=== PATIENT | male | born 1985 | race Caucasian/White ===

== ENCOUNTER 2025-10-10 11:31 | Emergency (ER) | payer OTHER, SELFPAY ==
[2025-10-10 11:32] VITALS: BP 143/94; PULSE 86; RESP 18; TEMP 36.6; O2SAT 96
--- NOTE | 2025-10-10 11:43 | EDS_ITS ---
HPI History of Present Illness Chief Complaint: Lower Extremity Injury Detail of Chief Complaint: Right ankle injury Informant: patient Narrative Narrative: Patient presents to the emergency department with injury to the right ankle. Patient states that he slip and fall last night on ice. Able to bear some weight but having pain. Denies any other injuries. He is not anticoagulated. Did not hit his head. No loss of consciousness. PFSH PFSH Medical History no medical history Home Medications ?Medication ?Instructions ?Recorded ?Last Taken ?Type NK 10/10/25 Unknown History Allergy/AdvReac Type Severity Reaction Status Date / Time No Known Allergies Allergy Verified 10/10/25 11:34 Family History no significant family his Surgical History no surgical history ROS ROS ED Review of Systems ROS Unobtainable: other Constitutional Constitutional ED: Reports lethargy; Denies chills, fever(s), sweats or weight loss Eyes Eyes: Denies blurry vision, change in vision or diplopia ENT ENT ED: Denies rhinorrhea or sore throat Cardiovascular Cardiovascular: Denies chest pain, orthopnea or racing heartbeat Respiratory/Chest Respiratory/Chest: Denies cough, dyspnea, dyspnea on exertion, orthopnea or sputum Gastrointestinal Gastrointestinal: Denies abdominal pain, diarrhea, nausea or vomiting Genitourinary Genitourinary ED: Denies dysuria, hematuria or urinary frequency Musculoskeletal Musculoskeletal: Reports other Details: Right ankle injury/pain ; Denies arthralgias, back pain, myalgias or neck pain Integumentary Denies abscess, Abrasions or rash Neurologic Neurologic: Denies headache(s) or weakness Psychiatric Psychiatric: Denies anxiety, depression or suicidal thoughts Endocrine Endocrinology: Denies polydipsia, polyphagia or polyuria Hematologic/Lymphatic Hematologic/Lymphatic: Denies easy bleeding, easy bruising or lymphadenopathy Allergic/Immunologic Allergic/Immunologic ED: Denies mouth swelling, tongue swelling or urticaria EXAM Physical Exam Const Vital Signs: 10/10/25 11:32 Temperature 97.8 F Temperature Source Oral Pulse Rate 86 Respiratory Rate 18 Blood Pressure 143/94 H Blood Pressure Mean 110 Pulse Ox 96 Oxygen Delivery Method Room Air Positive well nourished and well developed General Appearance ED: well developed and NAD HEENT Reports TM's clear and moist mucous membranes normocephalic and atraumatic; Negative for trauma or tenderness Tympanic Membrane ED: Yes TM's clear Eyes PERRL and EOMs intact bilaterally General Eye ED: Negative for pale conjunctiva or scleral icterus Neck no lymphadenopathy, supple and no JVD General: Negative for tenderness Chest Wall inspection of chest normal and palpation of chest normal Chest: Negative for tenderness Resp normal respiratory effort and clear to auscultation bilaterally Effort and Inspection: Negative for respiratory distress or pain with movement Auscultation: Negative for rhonchi, wheezes or diminished lung sounds Cardio regular rate, regular rhythm, S1 normal heart sound, S2 normal heart sound and no murmurs Peripheral Pulses: pulses 2+ throughout GI normal to inspection, nondistended, normoactive bowel sounds, soft to palpation, non-tender, non-distended and no masses Back/Spine no CVA tenderness and no thoracic nor lumbar tenderness Extremity Extremity Narrative: Right ankle-minimal soft tissue swelling diffusely about the ankle mortise. He has tenderness to palp patient to the anterior ankle joint. There is no ecchymosis or bruising. Neurovascular intact distally. No pain at the proximal fibular head. No pain at the base of the fifth metatarsal General Extremety ED: Negative for edema General Extremity: Negative for edema Neuro oriented x3, CN's II-XII intact bilaterally, no sensory deficits noted and gait normal Sensorium / Orientation: awake, alert, oriented to person, oriented to place and oriented to time Motor Exam: strength 5/5 throughout and strength abnormal Psych mental status grossly normal Skin no rashes or lesions noted and no wounds MDM MDM MDM Narrative Medical decision making narrative: Patient presents with injury to the right ankle that occurred last night. X- rays obtained 3 views of the right ankle interpreted by myself as no evidence of fracture or dislocation. Patient will be given an air splint and crutches. He is instructed to ice and elevate the extremity. He is advised to use ibuprofen or Tylenol for discomfort. Advised to follow-up with primary care physician in 7 to 10 days. Radiography Diagnostic Testing: Three-view x-rays of the right ankle obtained interpreted by myself as no evidence of fracture or dislocation. Discharge Plan Triage Chief Complaint: Lower Extremity Injury ED Provider: Jadon Hillman Dx/Rx/DC Orders Clinical Impression: Right ankle sprain Instructions: ED Ankle Sprain (Adult) Prescriptions: No Action NK Print Language: Kiswahili Disposition Disposition: Home, Self Care
--- NOTE | 2025-10-10 11:55 | RAD_ITS ---
PROCEDURE: ANKLE MIN 3 VIEWS 10/10/2025 REASON FOR EXAM: INJURY TECHNIQUE: Procedure Code: RADANK Modality: DX Procedure: ANKLE MIN 3 VIEWS Laterality: Right COMPARISON: None FINDINGS: Bones: No acute fracture. Joints: Normal alignment. Mortise appears intact. No effusion. Soft tissues: Soft tissues are unremarkable. Other: None RAD/Ankle min 3 Views IMPRESSION: NO ACUTE FRACTURE OR DISLOCATION. Reading Location: [facility]
[2025-10-10 12:29] VITALS: BP 148/64; PULSE 84; RESP 16; TEMP 36.6; O2SAT 99
== END 2025-10-10 12:33 | disposition home or self-care (01) ==
LOC: ED 12:27
PROVIDERS: Emergency Provider Emergency Medicine; PCP Family Medicine; Visit Provider Emergency Medicine
DX: S93.401A Sprain of unspecified ligament of right ankle, initial encounter (principal); W00.9XXA Unspecified fall due to ice and snow, initial encounter
CPT/HCPCS: 73610; 99284